=== PATIENT | male | born 1995 | race Caucasian/White ===

== ENCOUNTER 2018-07-24 19:56 | Emergency (ER) | payer SELFPAY ==
[~2018-07-24] VITALS: Ht 175.3 cm; Wt 81.8 kg
[2018-07-24 20:07] VITALS: BP 139/70; PULSE 73; TEMP 97.2
== END 2018-07-24 22:37 | disposition home or self-care (01) ==
LOC: COL.ER 19:56
DX: S60.221A Contusion of right hand, initial encounter (principal); W22.8XXA Striking against or struck by other objects, initial encounter; Y92.59 Other trade areas as the place of occurrence of the external cause

== ENCOUNTER 2018-09-22 22:53 | Emergency (ER) | payer SELFPAY ==
[~2018-09-22] VITALS: Ht 175.3 cm; Wt 79.5 kg
[2018-09-22 23:11] VITALS: BP 126/71; TEMP 98.1
[2018-09-23 00:20] VITALS: PULSE 94
== END 2018-09-23 00:20 | disposition home or self-care (01) ==
LOC: COL.ER 22:53
DX: S60.221A Contusion of right hand, initial encounter (principal); F17.210 Nicotine dependence, cigarettes, uncomplicated; F12.90 Cannabis use, unspecified, uncomplicated; W22.8XXA Striking against or struck by other objects, initial encounter; Y92.59 Other trade areas as the place of occurrence of the external cause